=== PATIENT | female | born 1955 ===

== ENCOUNTER 2024-09-05 15:06 | Outpatient (RCR) | payer MEDICARE, OTHER, SELFPAY ==
[2024-09-05 15:11] LABS: % Basophils 0.1 %; % Eosinophils 0.2 %; % Immature Granulocytes 1.8 %; % Lymphocytes 5.1 %; % Monocytes 4.3 %; % Neutrophils 88.5 %; Absolute Immature Granulocytes 0.3 10^3/uL; Absolute Lymphocytes 0.9 10^3/uL; Absolute Monocytes 0.7 10^3/uL; Absolute Neutrophils 15.2 10^3/uL; Hematocrit 39.6 %; Hemoglobin 13.6 g/dL; Mean Corp Hgb Conc. 34.3 g/dL; Mean Corpuscular Hgb 28.3 pg; Mean Corpuscular Volume 82.5 fL; Mean Platelet Volume 8.8 fL; Platelet Count 354 10^3/uL; White Blood Cell Count 17.1 10^3/uL
[2024-09-05 15:49] LABS: INR 1.02; PT 13.7 Sec
[2024-09-05 15:50] LABS: APTT 21.1 Sec
[2024-09-05 16:38] LABS: ALT (SGPT) 19 U/L; AST (SGOT) 15 U/L; Albumin 4.1 g/dl; Alkaline Phosphatase 52 U/L; Blood Urea Nitrogen 24 mg/dl; Calcium 9.2 mg/dl; Carbon Dioxide 20 mmol/L; Chloride 99 mmol/L; Glucose 102 mg/dl; LDH 270 U/L; Potassium 4.8 mmol/L; Sodium 129 mmol/L; Total Bilirubin 0.4 mg/dl
== END 2024-09-29 23:59 | disposition home or self-care (01) ==
LOC: OID 15:06
PROVIDERS: ATTENDING PHYSICIAN Internal Medicine Hematology & Oncology
DX: C34.90 Malignant neoplasm of unspecified part of unspecified bronchus or lung (principal); C79.31 Secondary malignant neoplasm of brain; C79.70 Secondary malignant neoplasm of unspecified adrenal gland
CPT/HCPCS: 80053; 83615; 85025; 85610; 85730